=== PATIENT | male | born 1940 | race Caucasian/White ===

== ENCOUNTER → 2016-08-05 | Outpatient (CLI) | payer MEDICARE | LOC: EMI 11:04 | DX: R41.3 Other amnesia (principal); J32.1 Chronic frontal sinusitis | CPT/HCPCS: 70551 ==

== ENCOUNTER 2020-05-03 16:58 | Inpatient (IN) | payer MEDICARE ==
[~2020-05-03] VITALS: Ht 167.6 cm; Wt 84.0 kg
[~2020-05-03 16:58] MED LIST: ALPRAZOLAM0.5 MG PO; ASPIRIN81 MG PO; CADUET 10 MG-41 EACH PO; CIPRO500 MG PO; HYDROCHLOROTHIA25 MG PO; LISINOPRIL10 MG PO; METOPROLOL TART50 MG PO; PLAVIX 75 MG TA75 MG PO; PRILOSEC OTC20 MG PO; RANEXA500 MG PO
[2020-05-03 18:22] LABS: HEMOGLOBIN 15.8 gm/dl (14.0-17.5); RED BLOOD COUNT 5.19 M/UL (4.20-5.50); WHITE BLOOD COUNT 8.8 K/UL (4.5-11.0)
[2020-05-03 18:45] LABS: BUN/CREATININE RATIO 18 (0-10)
[2020-05-03] MEDS ORDERED: DONEPEZIL HCL23 MG PO (23:55)
[2020-05-03] MEDS ORDERED: METOPROLOL TAR100 MG PO (23:55)
[2020-05-03] MEDS ORDERED: NAMENDA10 MG PO (23:56)
[2020-05-03] MEDS ORDERED: GABAPENTIN300 MG PO (23:58)
[2020-05-03] MEDS ORDERED: POTASSIUM CHLO10 MEQ PO (23:59)
[2020-05-04 04:19] LABS: RED BLOOD COUNT 4.92 M/UL (4.20-5.50); WHITE BLOOD COUNT 7.8 K/UL (4.5-11.0)
[2020-05-04 04:32] LABS: BUN/CREATININE RATIO 18 (0-10)
== END 2020-05-04 17:36 | disposition home or self-care (01) | DRG 556 ==
LOC: ER1 16:58 → MED SURG 4 19:45 → CDU 19:45 → MED SURG 4 22:58
PROVIDERS: Emergency Medicine; ADMIT Internal Medicine
DX: M62.81 Muscle weakness (generalized) (principal); I25.10 Atherosclerotic heart disease of native coronary artery without angina pectoris; I10 Essential (primary) hypertension; Z95.1 Presence of aortocoronary bypass graft; Z88.2 Allergy status to sulfonamides; Z20.822 Contact with and (suspected) exposure to COVID-19
CPT/HCPCS: ECHO; 36415; 70450; 71045; 80048; 80053; 82550; 82553; 83735; 83874; 84484; 85025; 85027; 93005; 93306; 97161; 97166; 99285; J1650; J3475; J3480; J7040; U0002

== ENCOUNTER → 2020-06-06 | Outpatient (CLI) | payer MEDICARE ==
[~2020-06-06] MED LIST changes: +DONEPEZIL HCL23 MG PO; +GABAPENTIN300 MG PO; +METOPROLOL TAR100 MG PO; +NAMENDA10 MG PO; +POTASSIUM CHLO10 MEQ PO
== END ==
LOC: CT 08:24
DX: R26.0 Ataxic gait (principal)
CPT/HCPCS: 36415; 70470; 82565; Q9963

== ENCOUNTER 2020-09-09 16:38 | Emergency (ER) | payer MEDICARE ==
[~2020-09-09 16:38] MED LIST changes: -ALPRAZOLAM0.5 MG PO; -DONEPEZIL HCL23 MG PO; -GABAPENTIN300 MG PO; -LISINOPRIL10 MG PO
[2020-09-09 17:31] LABS: HEMOGLOBIN 15.4 gm/dl (14.0-17.5); RED BLOOD COUNT 4.9 M/UL (4.20-5.50); WHITE BLOOD COUNT 4.6 K/UL (4.5-11.0)
[2020-09-09] MEDS ORDERED: NITROSTAT0.4 MG SL (20:25)
== END 2020-09-09 21:13 | disposition left against medical advice (07) ==
LOC: ER1 16:38
PROVIDERS: Physician Assistant Medical
DX: R07.9 Chest pain, unspecified (principal); M25.512 Pain in left shoulder; R77.8 Other specified abnormalities of plasma proteins; I10 Essential (primary) hypertension; Z20.822 Contact with and (suspected) exposure to COVID-19; Z95.1 Presence of aortocoronary bypass graft; Z88.2 Allergy status to sulfonamides; Z79.82 Long term (current) use of aspirin; Z88.0 Allergy status to penicillin
CPT/HCPCS: 71045; 80053; 81001; 82550; 82553; 83874; 83880; 84484; 85025; 93005; 99285; U0002

== ENCOUNTER 2020-09-17 22:30 | Inpatient (IN) | payer MEDICARE, MEDICAID ==
[~2020-09-17] VITALS: Ht 172.7 cm; Wt 77.1 kg
[~2020-09-17 22:30] MED LIST changes: +NITROSTAT0.4 MG SL
[2020-09-18 00:15] LABS: BUN/CREATININE RATIO 16 (0-10)
[2020-09-18 00:51] LABS: HEMOGLOBIN 15.1 gm/dl (14.0-17.5); RED BLOOD COUNT 5.09 M/UL (4.20-5.50); WHITE BLOOD COUNT 9.3 K/UL (4.5-11.0)
[2020-09-18] MEDS ORDERED: RANEXA500 MG PO (09:14)
[2020-09-18] MEDS ORDERED: HYDROCHLOROTHIA25 MG PO (09:15)
[2020-09-18] MEDS ORDERED: CYCLOBENZAPRINE10 MG PO (09:15)
[2020-09-18] MEDS ORDERED: PRAVASTATIN SOD40 MG PO (09:16)
[2020-09-18] MEDS ORDERED: TOPROL XL 100100 MG PO (09:17)
[2020-09-18] MEDS ORDERED: DRISDOL1250 MCG PO (09:17)
[2020-09-18] MEDS ORDERED: ZESTRIL 40 MG T40 MG PO (11:07)
[2020-09-18] MEDS ORDERED: ALPRAZOLAM0.5 MG PO (11:08)
[2020-09-18] MEDS ORDERED: ARICEPT5 MG PO (23:55)
[2020-09-18] MEDS ORDERED: GABAPENTIN300 MG PO (23:58)
[2020-09-19 02:17] LABS: HEMOGLOBIN 14.2 gm/dl (14.0-17.5); RED BLOOD COUNT 4.59 M/UL (4.20-5.50); WHITE BLOOD COUNT 8.6 K/UL (4.5-11.0)
--- NOTE | 2020-09-19 04:16 | NUR ---
1913 LAB CALLED TO REPORT CRITICAL [facility] OF 246.6 [address] TR[address]IN OF 0.82. DR. LEUNG NOTIFIED; ORDER FOR 1L BOLUS OF NORMAL SALINE.
--- NOTE | 2020-09-19 04:19 | NUR ---
2131 DR JEAN, ORDERED 1L 1/2 N/S BOLUS OVER 2 HOURS AND THEN 1/2 N/S @ 150ML/HR.
--- NOTE | 2020-09-19 04:22 | NUR ---
0401 LAB CALLED TO REPORT CRITICAL CK[facility] OF 186.6 AND TROPONIN OF 0.72. CALLED AND REPORTED THESE LABS TO DR. BENAVIDES. NO NEW ORDERS
--- NOTE | 2020-09-19 04:23 | NUR ---
PT O2 BETWEEN 87% - 93%. CALLED DR. BENAVIDES; ORDER TO TITRATE TO KEEP < THAN 90%.
[2020-09-20 06:01] LABS: HEMOGLOBIN 16.3 gm/dl (14.0-17.5); RED BLOOD COUNT 5.23 M/UL (4.20-5.50); WHITE BLOOD COUNT 10.8 K/UL (4.5-11.0)
--- NOTE | 2020-09-20 07:48 | NUR ---
PATIENT'S OXYGEN SATURATION IN 80-87% RANGE WITH BOTH AIRVO AND NONREBREATHER ON. PATIENT IS ALSO COMBATIVE, AND IS PULLING LINES. WHEN NONREBREATHER OR AIRVO IS REMOVED PATIENT'S OXYGEN SATURATION IMMEDIATELY DROPS, WITH ONE OCCURRENCE BEING 30% THIS AM. MICHAEL RUCKER ON FLOOR, EXAMINED PATIENT AND NEW ORDERS NOTED FOR PATIENT TO BE ON ICU WITH INTUBATION. NOTIFIED [employer] DAT[employer] ADMINISTRATOR OF NEED FOR ICU BED.
--- NOTE | 2020-09-20 08:27 | NUR ---
ATTEMPTED TO CONTACT PATIENT'S FAMILY TO NOTIFY OF STATUS CHANGE WITH NO SUCCESS. LEFT VOICEMAIL FOR RETURN PHONE CALL.
[2020-09-20 14:14] LABS: HEMATOCRIT 44.5 % (37.5-51.0)
[2020-09-21 04:29] LABS: HEMOGLOBIN 13.4 gm/dl (14.0-17.5); RED BLOOD COUNT 4.4 M/UL (4.20-5.50); WHITE BLOOD COUNT 7.1 K/UL (4.5-11.0)
[2020-09-22 05:00] LABS: HEMOGLOBIN 13.2 gm/dl (14.0-17.5); RED BLOOD COUNT 4.36 M/UL (4.20-5.50); WHITE BLOOD COUNT 8.3 K/UL (4.5-11.0)
[2020-09-23 03:57] LABS: RED BLOOD COUNT 4.34 M/UL (4.20-5.50); WHITE BLOOD COUNT 9.3 K/UL (4.5-11.0)
[2020-09-23 04:16] LABS: BUN/CREATININE RATIO 50 (0-10)
[2020-09-24 05:18] LABS: HEMOGLOBIN 13.5 gm/dl (14.0-17.5); RED BLOOD COUNT 4.49 M/UL (4.20-5.50); WHITE BLOOD COUNT 15.4 K/UL (4.5-11.0)
[2020-09-24 05:57] LABS: BUN/CREATININE RATIO 51 (0-10)
[2020-09-24 22:45] LABS: ACINETOBACTER BAUMANNII Not Detected (Negative); CANDIDA ALBICANS Not Detected (Negative); CANDIDA KRUSEI Not Detected (Negative); CANDIDA TROPICALIS Not Detected (Negative); ENTEROCOCCUS Not Detected (Negative); ESCHERICHIA COLI Not Detected (Negative); HAEMOPHILUS INFLUENZAE Not Detected (Negative); KLEBSIELLA OXYTOCA Not Detected (Negative); KLEBSIELLA PNEUMONIAE Not Detected (Negative); KPC-CARBAPENEM-RESISTANCE GENE Not Detected (Negative); PROTEUS Not Detected (Negative); PSEUDOMONAS AERUGINOSA Not Detected (Negative); SERRATIA MARCESANS Not Detected (Negative); STAPHYLOCOCCUS AUREUS Not Detected (Negative); STREP AGALACTIAE (GROUP B) Not Detected (Negative); STREP PYOGENES (GROUP A) Not Detected (Negative); STREPTOCOCCUS Not Detected (Negative); vanA/B (VANCOMYCIN RESIST GENE Not Detected (Negative)
[2020-09-25 00:08] LABS: STAPHYLOCOCCUS DETECTED (Negative); mecA (METHICILLIN RESIST GENE DETECTED (Negative)
[2020-09-25 05:29] LABS: HEMOGLOBIN 12.9 gm/dl (14.0-17.5); RED BLOOD COUNT 4.2 M/UL (4.20-5.50)
[2020-09-25 05:55] LABS: WHITE BLOOD COUNT 9.3 K/UL (4.5-11.0)
[2020-09-25 05:58] LABS: BUN/CREATININE RATIO 60 (0-10)
[2020-09-26 04:07] LABS: HEMOGLOBIN 13.2 gm/dl (14.0-17.5); RED BLOOD COUNT 4.34 M/UL (4.20-5.50); WHITE BLOOD COUNT 9.6 K/UL (4.5-11.0)
[2020-09-26 04:36] LABS: BUN/CREATININE RATIO 77 (0-10)
[2020-09-27 05:02] LABS: HEMOGLOBIN 14.1 gm/dl (14.0-17.5); RED BLOOD COUNT 4.67 M/UL (4.20-5.50); WHITE BLOOD COUNT 10.5 K/UL (4.5-11.0)
[2020-09-27 05:31] LABS: BUN/CREATININE RATIO 74 (0-10)
--- NOTE | 2020-09-28 03:44 | NUR ---
0200- PT SATS STAYING IN THE 80S AND RR HIGH 30S WITH INCREASED WORK OF BREATHING, PT SEDATION WAS INCREASED, SUCTIONED THICK SECRETIONS FROM PTS MOUTH, SUCTIONED VIA ETT THICK BLOODY SECRETIONS NOTED, PT O2 CONTINUED TO STAY IN THE 80S, OBSERVED PT WAS NOT GETTING ANY VOLUME ON THE VENTILATOR AND NOTED A WEIRD NOISE COMING FROM THE CONNECTION POINT ON VENTILATOR SIDE . CALLED RT AND CONFIRMED THERE WAS A ISSUE WITH VENTILATOR. SWITCHED PT TO NEW VENTILATOR AND PTS CONDITION IMPROVED, O2 95%, RR 27. WILL CONTINUE TO MONITOR.
[2020-09-28 05:08] LABS: HEMOGLOBIN 13.4 gm/dl (14.0-17.5); RED BLOOD COUNT 4.37 M/UL (4.20-5.50)
[2020-09-28 05:17] LABS: WHITE BLOOD COUNT 16.6 K/UL (4.5-11.0)
[2020-09-28 05:29] LABS: BUN/CREATININE RATIO 58 (0-10)
--- NOTE | 2020-09-28 16:14 | NUR ---
MR. DECKER, OF THE PATIENTS DAUGHTER WHO 09/27/2020 NOTIFIED US THAT THERE IS NOT LIVING OR OTHER LIVING CHILDREN TO MAKE DECISIONS FOR THE PATIENT. MR. DECKER SAID THERE ARE GRANDCHILDREN AND HE, ALONG WITH THE GRANDCHILDREN WILL NOW MAKE DECISIONS FOR THE PATIENT. MR. DECKER HAS NOTED THAT HE WANTS TO BE NOTIFIED FOR ALL CHANGED IN PATIENT STATUS.
[2020-09-29 04:16] LABS: HEMOGLOBIN 12.1 gm/dl (14.0-17.5); RED BLOOD COUNT 3.98 M/UL (4.20-5.50); WHITE BLOOD COUNT 16.1 K/UL (4.5-11.0)
[2020-09-30 05:41] LABS: HEMOGLOBIN 11.9 gm/dl (14.0-17.5); RED BLOOD COUNT 3.87 M/UL (4.20-5.50); WHITE BLOOD COUNT 13.2 K/UL (4.5-11.0)
[2020-10-01 09:25] LABS: HEMOGLOBIN 12.2 gm/dl (14.0-17.5); RED BLOOD COUNT 3.99 M/UL (4.20-5.50); WHITE BLOOD COUNT 15.4 K/UL (4.5-11.0)
[2020-10-02 04:48] LABS: HEMOGLOBIN 11.5 gm/dl (14.0-17.5); RED BLOOD COUNT 3.79 M/UL (4.20-5.50); WHITE BLOOD COUNT 12.5 K/UL (4.5-11.0)
[2020-10-03 06:04] LABS: HEMOGLOBIN 10.8 gm/dl (14.0-17.5); RED BLOOD COUNT 3.58 M/UL (4.20-5.50); WHITE BLOOD COUNT 14.9 K/UL (4.5-11.0)
[2020-10-04 05:45] LABS: HEMOGLOBIN 11.3 gm/dl (14.0-17.5); RED BLOOD COUNT 3.74 M/UL (4.20-5.50); WHITE BLOOD COUNT 13.8 K/UL (4.5-11.0)
--- NOTE | 2020-10-04 09:45 | NUR ---
AC NOTIFIED OF PATIENT BEING TERMINALLY EXTUBATED SOON. AC INSTRUCTED ME TO CALL BACK AT CARDIAC TIME OF .
--- NOTE | 2020-10-04 11:31 | NUR ---
1055: PATIENT TERMINALLY EXTUBATED BY SAFIA SANTIAGO. PATIENT COMFORTABLE AND FAMILY AT BEDSIDE.
--- NOTE | 2020-10-04 11:58 | NUR ---
1141: TIME OF VERFIED WITH TWO NURSES. NO CORNEA REFELX NOTED AND NO APICAL PULSE NOTED AND NO BLOOD PRESSURE NOTED, NO SPONTANEOUS RESPIRATIONS AND NO PULSE VERFIED BY TWO LEADS. FAMILY NOTIFED OF TIME OF .
--- NOTE | 2020-10-04 13:11 | NUR ---
1230: [facility] NOTIFIED FOR REQUEST OF PICKUP
[2020-10-05 16:14] LABS: ADAMTS13 ACTIVITY 54 % (>=61)
== END 2020-10-04 13:45 | disposition expired | DRG 870 ==
LOC: ER1 22:30 → CDU 09-18 00:52 → 2 EAST 09-18 00:52 → M/S 09-18 00:52 → 2 EAST 09-20 08:15
PROVIDERS: Internal Medicine; Internal Medicine Pulmonary Disease; Registered Nurse; Student in an Organized Health Care Education/Training Program; ADMIT Internal Medicine
PROC: 3E033XZ Introduction of Vasopressor into Peripheral Vein, Percutaneous Approach (ICD-10-PCS; 2020-09-18)
PROC: 8E0ZXY6 Isolation (ICD-10-PCS; 2020-09-18)
PROC: 3E0333Z Introduction of Anti-inflammatory into Peripheral Vein, Percutaneous Approach (ICD-10-PCS; 2020-09-18)
PROC: 5A0935A Assistance with Respiratory Ventilation, Less than 24 Consecutive Hours, High Flow/Velocity Cannula (ICD-10-PCS; 2020-09-19)
PROC: 5A1955Z Respiratory Ventilation, Greater than 96 Consecutive Hours (ICD-10-PCS; principal; 2020-09-20)
PROC: 0BH17EZ Insertion of Endotracheal Airway into Trachea, Via Natural or Artificial Opening (ICD-10-PCS; 2020-09-20)
PROC: 02HV33Z Insertion of Infusion Device into Superior Vena Cava, Percutaneous Approach (ICD-10-PCS; 2020-09-20)
PROC: B548ZZA Ultrasonography of Superior Vena Cava, Guidance (ICD-10-PCS; 2020-09-20)
DX: A41.02 Sepsis due to Methicillin resistant Staphylococcus aureus (principal); U07.1 COVID-19; G93.41 Metabolic encephalopathy; Z51.5 Encounter for palliative care; A41.89 Other specified sepsis; J12.82 Pneumonia due to coronavirus disease 2019; J15.212 Pneumonia due to Methicillin resistant Staphylococcus aureus; J15.8 Pneumonia due to other specified bacteria; R65.21 Severe sepsis with septic shock; J80 Acute respiratory distress syndrome; N17.0 Acute kidney failure with tubular necrosis; M62.82 Rhabdomyolysis; E87.0 Hyperosmolality and hypernatremia; E87.2 Acidosis; E11.65 Type 2 diabetes mellitus with hyperglycemia; N18.30 Chronic kidney disease, stage 3 unspecified; I12.9 Hypertensive chronic kidney disease with stage 1 through stage 4 chronic kidney disease, or unspecified chronic kidney disease; D63.8 Anemia in other chronic diseases classified elsewhere; R53.81 Other malaise; T38.0X5A Adverse effect of glucocorticoids and synthetic analogues, initial encounter; E86.0 Dehydration; D69.6 Thrombocytopenia, unspecified; I25.10 Atherosclerotic heart disease of native coronary artery without angina pectoris; Z95.1 Presence of aortocoronary bypass graft; Z88.0 Allergy status to penicillin; Z88.2 Allergy status to sulfonamides; Z82.49 Family history of ischemic heart disease and other diseases of the circulatory system; Z79.01 Long term (current) use of anticoagulants; Z79.811 Long term (current) use of aromatase inhibitors; Z79.4 Long term (current) use of insulin
CPT/HCPCS: 31500; 36415; 36600; 70450; 71045; 76705; 80048; 80053; 80202; 81001; 82436; 82550; 82553; 82607; 82747; 82803; 82962; 83010; 83036; 83605; 83615; 83690; 83735; 83874; 83880; 83921; 84100; 84133; 84300; 84439; 84443; 84484; 84550; 85007; 85025; 85027; 85049; 85379; 85384; 85397; 85610; 85730; 86140; 87040; 87070; 87077; 87081; 87086; 87150; 87186; 87205; 92526; 93005; 94002; 94003; 94760; 99285; A6212; J0330; J0456; J0692; J1100; J1205; J1650; J1940; J1956; J2020; J2060; J2185; J2248; J2250; J2270; J2543; J2704; J3370; J3411; J7030; J7040; J7070; U0002